=== PATIENT | female | born 1935 | race Caucasian/White ===

== ENCOUNTER 2019-06-03 15:26 | Emergency (ER) | payer OTHER, SELFPAY ==
[2019-06-03 15:35] VITALS: BP 144/78; PULSE 84; RESP 18; TEMP 37.7; O2SAT 98; BMI 23.9
--- NOTE | 2019-06-03 16:44 | DI.RAD.S_ITS ---
PROCEDURE: XR CHEST 1V INDICATIONS: suspected sepsis TECHNIQUE: One view of the chest was acquired. COMPARISON: None. FINDINGS: Surgical changes and devices: None. Lungs and pleura: Lungs are clear. No pleural effusions or pneumothorax. Mediastinum: Mediastinal contours appear normal. Heart size is normal. Bones and chest wall: No suspicious bony lesions. Overlying soft tissues appear unremarkable. IMPRESSION: Patient tilted leftward, mild atelectasis, no pneumonia found. Dictated by: Wlat Paz M.D. on 06/03/2019 at 17:06 Approved by: Walt Paz M.D. on 06/03/2019 at 17:06
[2019-06-03 17:43] LABS: Add Manual Diff / Slide Review NO; Basophils Absolute Auto 100 /uL (0-100); Basophils Percent Auto 0.7 % (0-2); Eosinophils Absolute Auto 100 /uL (0-450); Eosinophils Percent Auto 1.3 % (2-4); Hematocrit 40.8 % (36-46); Hemoglobin 13.6 g/dL (12.0-16.0); Lymphocytes Absolute Auto 1500 /uL (1100-4500); Lymphocytes Percent Auto 18.4 % (25-40); Mean Corpuscular HGB Conc 33.4 % (30-36); Mean Corpuscular Hemoglobin 31.8 PG (26-34); Mean Corpuscular Volume 95.5 fL (80-100); Monocytes Absolute Auto 800 /uL (0-900); Monocytes Percent Auto 9.7 % (3-14); Neutrophils Absolute Auto 5800 /uL (1500-7000); Neutrophils Percent Auto 69.9 % (50-75); Platelet Count 320 X10^3/uL (150-400); Red Blood Cell Count 4.27 X10^6/uL (4.0-5.2); Red Cell Distribution Width 13.5 % (11.6-14.8); White Blood Cell Count 8.3 X10^3/uL (4.5-11.0)
[2019-06-03 17:47] LABS: Prothrombin Time 11.7 SECONDS (10.1-12.7)
[2019-06-03 17:50] LABS: PTT Partial Thromboplastin Tim 31 SECONDS (26.4-36.2)
[2019-06-03] MEDS: SODIUM CHLORIDE 0.9% 1,000 ML 1000 ML IV (17:52)
[2019-06-03 17:54] LABS: Alanine Aminotransferase < 6 IU/L (9-52); Albumin 4.3 g/dL (3.5-5.0); Albumin Globulin Ratio 1.1 (1.0-2.8); Alkaline Phosphatase 66 U/L (38-126); Aspartate Aminotransferase 18 IU/L (14-36); BUN Creatinine Ratio 17.8 (6-22); Bilirubin Total 0.4 mg/dL (0.2-1.3); Blood Urea Nitrogen 16 mg/dL (7-17); Calcium 9.5 mg/dL (8.4-10.2); Carbon Dioxide 28 mmol/L (22-32); Chloride 101 mmol/L (98-107); Estimated Glomerular Filt Rate 59.9 mL/min (>60); Globulin 3.9 g/dL (1.7-4.1); Glucose 105 mg/dL (80-110); HEMOLYSIS < 15 (0-50); Lipase 220 U/L (23-300); Potassium 4.2 mmol/L (3.4-5.1); Sodium 140 mmol/L (137-145); Total Protein 8.2 g/dL (6.3-8.2)
[2019-06-03 18:06] LABS: Lactate (Lactic Acid) 1.1 mmol/L (0.7-2.1)
[2019-06-03 18:07] LABS: Bacteria Urine None Seen; RBC Urine None Seen (0-5/HPF); WBC Urine 0-1/HPF (0-5/HPF)
[2019-06-03 18:08] LABS: Culture Indicated Urine Specimen Cultured; Squamous Epithelial Cell Urine None Seen (0-5/HPF)
[2019-06-03 18:09] LABS: Procalcitonin < 0.05 ng/mL (<0.5)
[2019-06-03 19:07] VITALS: BP 149/87; PULSE 67; RESP 17; O2SAT 99
--- NOTE | 2019-06-03 19:58 | ED.SKABFB ---
HPI - Skin/Abscess/Foreign Bdy General Chief complaint: Skin/Abscess/Foreign Body Stated complaint: left breast pain from recent surgery Time Seen by Provider: 06/03/19 18:07 Source: patient Mode of arrival: ambulatory Limitations: no limitations History of Present Illness HPI narrative: Patient comes emergency department complaining of redness in the area of her recent left breast lumpectomy. Patient states the symptoms have been there for approximately a week and half but that the redness has been progressing. She states that the incision site had developed a postoperative seroma, and that she has already been seen for this. She was placed on clindamycin several days ago, but states that the redness is spreading. She denies chills or fever. No lightheadedness. No shakes. No other complaints at this time. Patient reports minimal pain. Related Data Home Medications Medication Instructions Recorded Confirmed clindamycin HCl 150 mg PO QID 06/03/19 06/03/19 gabapentin 200 mg PO TID 06/03/19 06/03/19 letrozole 2.5 mg PO DAILY 06/03/19 06/03/19 Previous Rx's Medication Instructions Recorded sulfamethoxazole-trimethoprim 1 tab PO BID #14 tab 06/03/19 [Bactrim DS] Allergies Allergy/AdvReac Type Severity Reaction Status Date / Time erythromycin base Allergy Verified 06/03/19 15:47 [From Erythrocin] Penicillins Allergy Verified 06/03/19 15:46 Review of Systems Constitutional Denies chills, Denies fever(s), Denies lethargy and Denies weakness Eyes Denies change in vision, Denies eye discharge, Denies irritation and Denies loss of vision ENT Ears, Nose, Mouth, and Throat: Denies change in voice, Denies neck pain and Denies sore throat Cardiovascular Denies chest pain, Denies irregular heart rhythm, Denies lightheadedness, Denies palpitations, Denies dyspnea, Denies dyspnea on exertion and Denies orthopnea Respiratory Denies cough, Denies dyspnea, Denies dyspnea on exertion and Denies wheezing Gastrointestinal Gastrointestinal: Denies abdominal pain, Denies change in bowel habits, Denies diarrhea, Denies nausea and Denies vomiting Genitourinary Denies hematuria, Denies flank pain, Denies urinary incontinence and Denies urinary urgency Musculoskeletal Denies neck pain Integumentary/Breasts Denies pruritus, Reports erythema, Denies rash and Denies wounds Neurologic Denies confusion, Denies loss of vision and Denies weakness Psychiatric Denies anxiety, Denies confusion, Denies depression, Denies homicidal ideation and Denies suicidal ideation Endocrine Denies palpitations Hematologic/Lymphatic Denies easy bruising Allergic/Immunologic Denies wheezing [facility] Medical History (Updated 06/03/19 @ 20:47 by Flores Love MD) Breast cancer (Acute) Surgical History (Updated 06/03/19 @ 20:47 by Flores Love MD) S/P lumpectomy of breast (Acute) Social History (Updated 06/03/19 @ 20:48 by Flores Love MD) additional social history: Patient lives in [place] and receives her medical care there. Her significant other spends perry here, and that is why she is in [place]. She states she is here until August 20. She does not have a primary care physician here. Social History (Updated 06/03/19 @ 20:48 by Flores Love MD) additional social history: Patient lives in [place] and receives her medical care there. Her significant other spends perry here, and that is why she is in [place]. She states she is here until August 20. She does not have a primary care physician here. Exam Initial Vital Signs Initial Vital Signs: Vital Signs Temperature 99.8 F H 06/03/19 15:35 Pulse Rate 84 06/03/19 15:35 Respiratory Rate 18 06/03/19 15:35 Blood Pressure 144/78 H 06/03/19 15:35 Pulse Oximetry 98 06/03/19 15:35 Const General: cooperative and well developed Nutritional Appearance: well nourished Orientation: alert, awake, oriented x3 and not confused [facility] Head: normocephalic and atraumatic Ears: external ears normal and TM's normal bilaterally Nose: external nose normal and No nasal discharge Face and sinus: sinuses nontender, face symmetric, no sinus tenderness and No dry mucous membranes Mouth: oral mucosae normal and moist mucous membranes Teeth and gingiva: dentition normal Throat: tonsils normal and uvula midline Eyes General: appearance normal, both eyes and all related structures Eyelids: eyelids normal Conjunctivae: conjunctivae normal Sclera: sclerae normal Pupils: PERRL EOM: EOM intact bilaterally Neck Neck: normal visual inspection, trachea midline, No lymphadenopathy, No midline deformity and No JVD Lymphatic: No lymphedema Chest Chest: normal inspection of the chest Resp Effort & Inspection: normal respiratory effort, able to speak in complete sentences, no respiratory distress and no use of accessory muscles Auscultation: clear to auscultation bilaterally, no rales, no rhonchi and no wheezes Cardio Rate: regular rate Rhythm: regular rhythm Heart Sounds: no click, no gallops, no murmurs and no rubs Pulses: normal peripheral pulses GI Inspection: non-distended Palpation: soft, no hepatosplenomegaly, No guarding, No pulsatile mass and No tender Auscultation: normal bowel sounds Back/Spine/Pelvis Back: No CVA tenderness Cervical Spine: cervical ROM normal and No pain with cervical ROM Thoracic/Lumbar Spine: thoracic and lumbar spine normal to inspection Skin General: no rashes or lesions noted, No jaundice and No petechiae Other: Patient has an approximately 20 cm diameter area of intense erythema over the superolateral left breast and anterior axillary area. A well-healed surgical incision is noted with an approximately 5 cm area of fluctuance and induration surrounding. No drainage noted. No streaking. Neuro General: alert, oriented x3, gait normal and no focal motor deficits Speech: speech normal Extrem General: full ROM, no clubbing, cyanosis or edema, no pedal edema and no calf tenderness Psych Appearance: well kempt Mental Status: mental status grossly normal Attitude: cooperative Thought Content: normal and suicidality Judgment: judgment good Procedures Abscess I/D Site: chest Side (if applicable): left Local Anesthetic: lidocaine 2% Amount of anesthesia used (mL): 5 Technique: incised with #11 blade Amount of fluid expressed (mL): 10 (Serosanguineous) Irrigation: Yes Packing used?: iodoform Course Course Narrative: Patient was started on Bactrim in the emergency department. I did not feel that after 5 days the clindamycin had demonstrated itself to be working, and I did advise the patient to discontinue this. The patient did not have pus in her seroma cavity, but I did pack the area to prevent formation of an abscess. I have discussed with the patient the importance of having a physician to follow up with during her extended stays in [place]. To this end, I have referred her to [facility]. I have advised the patient call as soon as possible to make an appointment for 2 days from now to have her wound rechecked in her packing replaced. If the patient is not able to get into [facility] for follow up, then she should follow up in the emergency department for wound re-evaluation. We have discussed home management of symptoms, as well as the usual indications for return. Orders Ordered: ED Orders 06/03/19 16:44 XR chest 1V Stat EKG-12 Lead Stat RT Consult Eval and Treat Now 06/03/19 17:30 Complete Blood Count AUTO DIFF Stat Comprehensive Metabolic Panel Stat Lactate (Lactic Acid) Stat Lipase Stat Partial Thromboplastin Time Stat Procalcitonin Stat Prothrombin Time INR Stat 06/03/19 17:42 Urine Culture Stat Urine Microscopic Stat 06/03/19 19:09 Blood Culture Stat Discontinued Medications Sodium Chloride (Normal Saline 0.9%) 1,000 mls @ 1,000 mls/hr IV BOLUS ONE Stop: 06/03/19 17:43 Last Infusion: 06/03/19 18:52 Dose: 0 mls/hr Admin: 06/03/19 17:52 Dose: 1,000 mls/hr Lidocaine HCl (Xylocaine 2%) 1 ml SUBCUT NOW ONE Stop: 06/03/19 20:01 Last Admin: 06/03/19 20:05 Dose: 1 ml Lidocaine/Sodium Bicarbonate (Buffered Lidocaine 5ml Syringe) 5 ml INJ NOW ONE Stop: 06/03/19 19:57 Last Admin: 06/03/19 20:06 Dose: Not Given Trimethoprim/Sulfamethoxazole (Bactrim Ds) 1 tab PO NOW ONE Stop: 06/03/19 20:32 Vital Signs - 8 hr 06/03/19 15:35 06/03/19 19:07 Temperature 99.8 F H Pulse Rate 84 67 Respiratory Rate 18 17 Blood Pressure 144/78 H Blood Pressure [Right Arm] 149/87 H Pulse Oximetry 98 99 MDM - Skin/Abscess/Foreign Bdy Medical Records Attestation: I reviewed the patient's medical records. Lab Data Attestation: I reviewed the patient's lab results. Result diagrams: 06/03/19 17:30 06/03/19 17:30 Lab Results 08/14/19 08/14/19 08/14/19 Range/Units 17:30 17:30 17:30 WBC 8.3 (4.5-11.0) X10^3/uL RBC 4.27 (4.0-5.2) X10^6/uL Hgb 13.6 (12.0-16.0) g/dL Hct 40.8 (36-46) % MCV 95.5 (80-100) fL MCH 31.8 (26-34) PG MCHC 33.4 (30-36) % RDW 13.5 (11.6-14.8) % Plt Count 320 (150-400) X10^3/uL Neut % (Auto) 69.9 (50-75) % Lymph % (Auto) 18.4 L (25-40) % [place]aston % (Auto) 9.7 (3-14) % Eos % (Auto) 1.3 L (2-4) % Baso % (Auto) 0.7 (0-2) % Neut # (Auto) 5800 (2503-7147) /uL Lymph # (Auto) 1500 (3061-8662) /uL Gaston # (Auto) 800 (0-900) /uL Eos # (Auto) 100 (0-450) /uL Baso # (Auto) 100 (0-100) /uL PT 11.7 (10.1-12.7) SECONDS INR 1.0 (0.9-1.3) APTT 31 (26.4-36.2) SECONDS Sodium (137-145) mmol/L Potassium (3.4-5.1) mmol/L Chloride (98-107) mmol/L Carbon Dioxide (22-32) mmol/L BUN (7-17) mg/dL Creatinine (0.52-1.04) mg/dL Estimated GFR (>60) mL/min BUN/Creatinine Ratio (6-22) Glucose (80-110) mg/dL Lactate (0.7-2.1) mmol/L Calcium (8.4-10.2) mg/dL Total Bilirubin (0.2-1.3) mg/dL AST (14-36) IU/L ALT (9-52) IU/L Alkaline Phosphatase (38-126) U/L Total Protein (6.3-8.2) g/dL Albumin (3.5-5.0) g/dL Globulin (1.7-4.1) g/dL Albumin/Globulin Ratio (1.0-2.8) Lipase (23-300) U/L Procalcitonin < 0.05 (<0.5) ng/mL Urine RBC (0-5/HPF) Urine WBC (0-5/HPF) Ur Squamous Epith Cells (0-5/HPF) Urine Bacteria (None) Ur Culture Indicated? 06/03/19 06/03/19 06/03/19 Range/Units 17:30 17:30 17:42 WBC (4.5-11.0) X10^3/uL RBC (4.0-5.2) X10^6/uL Hgb (12.0-16.0) g/dL Hct (36-46) % MCV (80-100) fL MCH (26-34) PG MCHC (30-36) % RDW (11.6-14.8) % Plt Count (150-400) X10^3/uL Neut % (Auto) (50-75) % Lymph % (Auto) (25-40) % Gaston % (Auto) (3-14) % Eos % (Auto) (2-4) % Baso % (Auto) (0-2) % Neut # (Auto) (8581-9108) /uL Lymph # (Auto) (3790-1342) /uL Gaston # (Auto) (0-900) /uL Eos # (Auto) (0-450) /uL Baso # (Auto) (0-100) /uL PT (10.1-12.7) SECONDS INR (0.9-1.3) APTT (26.4-36.2) SECONDS Sodium 140 (137-145) mmol/L Potassium 4.2 (3.4-5.1) mmol/L Chloride 101 (98-107) mmol/L Carbon Dioxide 28 (22-32) mmol/L BUN 16 (7-17) mg/dL Creatinine 0.90 (0.52-1.04) mg/dL Estimated GFR 59.9 L (>60) mL/min BUN/Creatinine Ratio 17.8 (6-22) Glucose 105 (80-110) mg/dL Lactate 1.1 (0.7-2.1) mmol/L Calcium 9.5 (8.4-10.2) mg/dL Total Bilirubin 0.4 (0.2-1.3) mg/dL AST 18 (14-36) IU/L ALT < 6 L (9-52) IU/L Alkaline Phosphatase 66 (38-126) U/L Total Protein 8.2 (6.3-8.2) g/dL Albumin 4.3 (3.5-5.0) g/dL Globulin 3.9 (1.7-4.1) g/dL Albumin/Globulin Ratio 1.1 (1.0-2.8) Lipase 220 (23-300) U/L Procalcitonin (<0.5) ng/mL Urine RBC None seen (0-5/HPF) Urine WBC 0-1/hpf (0-5/HPF) Ur Squamous Epith Cells None seen (0-5/HPF) Urine Bacteria None seen (None) Ur Culture Indicated? Specimen cultured Urine Dip Bedside Urine Glucose Negative Bedside Urine Bilirubin + 1 Bedside Urine Ketone +/- 5 Urine Specific [place] 1.020 Bedside Urine Occult Blood - Negative Bedside Urine pH 5.5 Bedside Urine Protein +/- 15 Bedside Urine Urobilinogen +/- 1mg Bedside Urine Leukocytes +/- 15 Esterase Discharge Plan Departure Patient Disposition: Home Clinical Impression: Seroma Cellulitis Qualifiers: Site of cellulitis: extremity Site of cellulitis of extremity: lower extremity Laterality: left Qualified Code(s): L03.116 - Cellulitis of left lower limb Instructions: DI for Cellulitis -- Adult, DI for Incision and Drainage of a Skin Abscess Activity Restrictions/Additional Instructions: You been started on antibiotics for your infection. Please have your wound checked in 2 days for packing change. Call [facility] for an appointment for this for Saturday. Prescriptions: New sulfamethoxazole-trimethoprim [Bactrim DS] 800-160 mg tablet 1 tab PO BID Qty: 14 RF: 0 No Action clindamycin HCl 150 mg Capsule 150 mg PO QID RF: 0 gabapentin 100 mg Capsule 200 mg PO TID RF: 0 letrozole 2.5 mg Tablet 2.5 mg PO DAILY RF: 0 Referrals: [facility] [Provider Group]
[2019-06-03] MEDS: LIDOCAINE 2% INJ MDV 1 ML SUBCUT (20:05)
[2019-06-03 20:30] VITALS: BP 140/82; O2SAT 100
[2019-06-03] MEDS: TRIMETH/SULFA 160/800 (DS) TABLET 1 TAB PO (20:35)
--- NOTE | 2019-06-03 20:45 | PC.NURSE ---
Outline of erythema marked with pen, Gauze dressing applied and taped to wound to under left arm per Dr. Love instructions.
== END 2019-06-03 20:50 | disposition home or self-care (01) ==
PROVIDERS: Emergency Medicine; Emergency Provider Emergency Medicine
DX: M96.843 Postprocedural seroma of a musculoskeletal structure following other procedure (principal); L03.116 Cellulitis of left lower limb
CPT/HCPCS: 10060; 36415; 36591; 71045; 80053; 81003; 81015; 83605; 83690; 84145; 85025; 85610; 85730; 87040; 87086; 96360; 99283; 99285